=== PATIENT | male | born 1970 | race Caucasian/White ===

== ENCOUNTER 2017-01-29 23:24 | Observation (INO) ==
[2017-01-30] MEDS ORDERED: HYDROmorphone 2 MG/1 ML VIAL IV STA (00:46)
[2017-01-30] MEDS ORDERED: METOPROLOL TARTRATE 25 MG TABLET PO STA (00:46)
[2017-01-30] MEDS ORDERED: ONDANSETRON 4 MG/2 ML VIAL IV STA (00:46)
[2017-01-30] MEDS ORDERED: NITROGLYCERIN 2% OINT 1 INCH/GM PACK TOP STA (00:46)
[2017-01-30] MEDS ORDERED: ALUM/MAG/SIMETH/LIDO VISC 1:1 30 ML BOTTLE PO STA (00:46)
[2017-01-30] MEDS ORDERED: ASPIRIN EC 325 MG TABLET PO STA (00:49)
[2017-01-30] MEDS ORDERED: ALUM/MAG/SIMETH/LIDO VISC 1:1 30 ML BOTTLE PO ONE (00:54)
[2017-01-30] MEDS ORDERED: METOPROLOL TARTRATE 25 MG TABLET ONE (00:54)
[2017-01-30] MEDS ORDERED: ASPIRIN EC 325 MG TABLET PO ONE (00:54)
[2017-01-30] MEDS ORDERED: HYDROmorphone 2 MG/1 ML VIAL ONE (00:54)
[2017-01-30] MEDS ORDERED: NITROGLYCERIN 2% OINT 1 INCH/GM PACK TOP ONE (00:54)
[2017-01-30] MEDS ORDERED: ONDANSETRON 4 MG/2 ML VIAL ONE (00:54)
[2017-01-30 00:57] LABS: Alanine Aminotransferase 29 U/L (16-61); Albumin 3.5 G/DL (3.4-5.0); Alkaline Phosphatase 103 U/L (45-117); Aspartate Amino Transferase 19 U/L (0-37); Bilirubin,Total < 0.39 MG/DL (0.2-1.0); Blood Urea Nitrogen 18 MG/DL (7-18); Calcium 8.8 MG/DL (8.5-10.1); Glucose 137 MG/DL (74-106); Osmolality,Calculated 286.1 MOS/KG (273-304); Potassium 3.8 MMOL/L (3.5-5.1); Sodium 142 MMOL/L (136-145); Total Protein 6.7 G/DL (6.4-8.3)
[2017-01-30 00:58] LABS: Basophils % 0.4 % (0.0-0.8); Eosinophils # 0.3 10*3/uL (0.0-0.87); Eosinophils % 2.8 % (0.00-10.9); Hematocrit 36.8 VOL% (42.0-52.0); Hemoglobin 13.2 GM/DL (14.0-18.0); Immature Granulocytes % 0.2 %; Immature Granulocytes Absolute 0.02 #; Lymphocytes # 2.3 10*3/uL (1.4-4.0); Lymphocytes % 24.5 % (21.2-54.2); Mean Corpuscular HGB Conc 35.9 GM/DL (32-36); Mean Corpuscular Hemoglobin 30 PG (27-34); Mean Corpuscular Volume 83.8 FL (87-102); Mean Platelet Volume 11.1 FL (9.6-12.0); Monocytes # 0.8 10*3/uL (0.11-0.8); Monocytes % 8.2 % (1.7-12.7); Neutrophils # 5.9 10*3/uL (1.4-7.4); Neutrophils % 63.9 % (38.7-73.9); Platelet Count 284 T/CUMM (130-400); Red Blood Count 4.39 MC/CUMM (3.8-5.5); Red Cell Distribution Width 11.9 % (9.3-17.3); White Blood Count 9.2 T/CUMM (4-12)
--- NOTE | 2017-01-30 01:02 | Emergency Department Note ---
Devon Smith Emily, am scribing for, and in the presence of, Johnny Alcala MD 01: 00. Cari Smith Charles R, MD, personally performed the services described in this documentation, ascribed by Rossy Osorio in my presence, and it is both accurate and complete . Arrival - Arrival Chief Complaint: Chest Pain Stated Complaint: chest and side pain ED Nursing Triage Note: C/C burning/sharp/constant, chest pain radiates into left side, worse when laying down, occasionally short of breath, nauseated. Pain started Monday night. Mode of Arrival: Ambulatory Limitations: No Limitations Source: Patient Time Seen by Provider: 01/30/17 00:37 - History of Present Illness HPI Narrative: Pt is a 46 y/o male who came to ED with c/o chest pain that radiates down left arm and neck that has been ongoing since Monday. Pt notes the pain is sharp and worse when laying day. He also has occasional SOB and nausea with pain. Pt denies hx of heart issues. Pt reports having acid reflux but states these sxs now are different and never felt prior to visit. Pt is a former smoker. Pt denies recent injury. Pt's PCP is Dr. Nadege Heredia. Onset (ago): day(s) Consistency: constant Severity: mild Severity scale (1-10): 3 Quality: aching Allergies/Adverse Reactions: Allergies Allergy/AdvReac Type Severity Reaction Status Date / Time morphine Allergy RASH Verified 01/29/17 23:34 prochlorperazine Allergy RASH Verified 01/29/17 23:34 [From Compazine] tolmetin [From Tolectin] Allergy Anxiety Verified 01/29/17 23:34 Home Medications: Home Medications Medication Instructions Recorded Confirmed Type Aspirin [Ecotrin] 81 mg PO DAILY 04/23/15 06/17/16 History Hydrocodone Bit/Homatrop Me-Br 5 ml PO Q4HR PRN 04/23/15 06/17/16 History [Hydrocodone/Homatropine Syrup] Levofloxacin Tab [Levaquin Tab] 750 mg PO DAILY 04/23/15 06/17/16 History Levalbuterol Neb [Xopenex Neb] 1.25 mg RESP TX RT Q8H #1 neb NS 04/24/15 Rx Levofloxacin Tab [Levaquin Tab] 500 mg PO Q24H #0 tablet 04/24/15 06/17/16 Rx methylPREDNISolone DOSEPAK [Medrol 8 mg PO 0800 #21 tablet 04/24/15 06/17/16 Rx Dosepak] Cyclobenzaprine [Flexeril] 10 mg PO TID #20 tablet 06/17/16 Rx Ketorolac Tab [Toradol Tab] 10 mg PO Q8H #14 tablet 06/17/16 Rx Review of System - Review of System 12 point system: reviewed and no additional remarkable complaints except as stated - Review of System Constitutional: Absent: chills, fever Respiratory: Present: respiratory distress (occasional SOB) Cardiovascular: Present: chest pain. Absent: dyspnea on exertion Gastrointestinal: Present: nausea. Absent: vomiting Musculoskeletal: Absent: back pain Skin: Absent: rash Neurological: Absent: headache Medical,Surgical,& Family Hx - Medical History Cardio: No history of: CHF, CAD, Hypertension Respiratory: History of: Pneumonia Gastrointestinal: History of: GERD, GI Problems (hiatal hernia) Musculoskeletal: History of: Back/Neck Problems - Surgical History Orthopedic Surgeries: Surgical HX of;: Spinal Surgery (cervical fusion, SPINAL FUSION) - Family History Family History: Denies;: Family Cancer, Family Diabetes, Family Stroke - Social History Smoking Status: Former smoker Frequency of Alcohol Use: None Type of Drug Use: None Exam Vital Signs: Vital Signs Temperature 98.3 F 01/29/17 23:29 Pulse Rate 97 H 01/29/17 23:29 Respiratory Rate 16 01/29/17 23:55 Blood Pressure 126/89 01/29/17 23:29 O2 Sat by Pulse Oximetry 99 01/29/17 23:29 - General General appearance: alert, in no apparent distress - Head Head exam: Present: atraumatic, normocephalic - Eye Eye exam: Present: PERRL, EOMI - ENT ENT exam: Present: mucous membranes moist. Absent: mucous membranes dry - Neck Neck exam: Present: full ROM. Absent: tenderness - Chest Chest inspection: Present: symmetric chest wall rise, tenderness (reproducible left chest wall) - Respiratory Respiratory exam: Present: rhonchi. Absent: accessory muscle use, respiratory distress - Cardiovascular Cardiovascular exam: Present: regular rate, normal rhythm, normal heart sounds - Abdominal Exam Abdominal exam: Present: soft. Absent: distention, tenderness - Extremities Exam Extremities exam: Present: full ROM. Absent: tenderness, pedal edema - Neurological Exam Neurological exam: Present: alert, oriented X3, CN II-XII intact. Absent: motor sensory deficit - Psychiatric Psychiatric exam: Present: normal affect, normal mood - Skin Skin exam: Present: warm, dry Course - Consultations Consultation #1: Dr. Burnham will admit for Dr. Jeovanny Heredia Time: 01:12 Results - Labs CBC & BMP: 01/30/17 00:00 01/30/17 00:00 Lab Results: I have reviewed the patients labs Labs: Laboratory Tests 01/30/17 01/30/17 00:00 00:00 Hgb 13.2 L Hct 36.8 L MCV 83.8 L Glucose 137 H Albumin/Globulin Ratio 1.0 L Disposition Clinical Impression: Chest pain Case discussed with: patient, patient's family Disposition: Still a Patient Condition: Stable Time of Disposition: 01:12
[2017-01-30 01:03] LABS: PT Patient Result 10.4 SECS; Partial Thromboplastin Time 29.1 SECS (0-40)
[2017-01-30 01:05] LABS: Magnesium 1.9 MG/DL (1.8-2.4)
[2017-01-30] MEDS ORDERED: ONDANSETRON 4 MG/2 ML VIAL IV PRN (02:32)
[2017-01-30] MEDS ORDERED: LACTULOSE 20 GM/30 ML UDCUP PO PRN (02:32)
[2017-01-30] MEDS ORDERED: SODIUM CHLORIDE 0.9% 1,000 ML IV SCH (02:32)
[2017-01-30] MEDS ORDERED: ACETAMINOPHEN 325 MG TABLET PO PRN (02:32)
[2017-01-30] MEDS ORDERED: HYDROmorphone 2 MG/1 ML VIAL IV PRN (02:32)
[2017-01-30] MEDS: ENOXAPARIN 100 MG/ML SYRINGE SUBCUT SCH ×2 (02:56→08:28)
[2017-01-30 03:39] LABS: Barbiturates Screen,Urine Negative (Negative); Benzodiazepines Screen,Urine Negative (Negative); Cannabinoid Screen,Urine Negative (Negative); Opiate Screen,Urine Positive (Negative); Phencyclidine Screen,Urine Negative (Negative)
[2017-01-30 03:40] LABS: Apearance,Urine CLEAR (Clear); Bilirubin,Urine Negative (Negative); Blood, Urine Negative (Negative); Glucose,Urine (UA) Negative (Negative); Ketones,Urine Negative (Negative); Mucus,Urine Few /LPF (Occasional); Nitrite,Urine Negative (Negative); Protein,Urine Negative; Squamous Epithelial Cell,Urine Occasional /HPF (0-10); Urine Color Yellow (Yellow); Urine Specific Gravity 1.028 (1.001-1.035); Urine Urobilinogen < 2.0 EU/DL (0.2-1.0)
[2017-01-30 05:08] LABS: Basophils % 0.5 % (0.0-0.8); Eosinophils # 0.2 10*3/uL (0.0-0.87); Eosinophils % 2.9 % (0.00-10.9); Hematocrit 35.9 VOL% (42.0-52.0); Hemoglobin 12.3 GM/DL (14.0-18.0); Immature Granulocytes % 0.2 %; Immature Granulocytes Absolute 0.02 #; Lymphocytes # 2.5 10*3/uL (1.4-4.0); Lymphocytes % 29.5 % (21.2-54.2); Mean Corpuscular HGB Conc 34.3 GM/DL (32-36); Mean Corpuscular Hemoglobin 29 PG (27-34); Mean Corpuscular Volume 83.7 FL (87-102); Mean Platelet Volume 11.3 FL (9.6-12.0); Monocytes # 0.7 10*3/uL (0.11-0.8); Monocytes % 8.1 % (1.7-12.7); Neutrophils # 4.9 10*3/uL (1.4-7.4); Neutrophils % 58.8 % (38.7-73.9); Platelet Count 287 T/CUMM (130-400); Red Blood Count 4.29 MC/CUMM (3.8-5.5); Red Cell Distribution Width 12.2 % (9.3-17.3); White Blood Count 8.4 T/CUMM (4-12)
[2017-01-30 05:57] LABS: Albumin 3.3 G/DL (3.4-5.0); Bilirubin,Total 0.7 MG/DL (0.2-1.0); Calcium 8.9 MG/DL (8.5-10.1); Magnesium 2.3 MG/DL (1.8-2.4); Osmolality,Calculated 282.3 MOS/KG (273-304); Potassium 4.2 MMOL/L (3.5-5.1); Risk Ratio 5.71; Total Protein 6.3 G/DL (6.4-8.3); VLDL CHOLESTEROL 85.2 MG/DL
[2017-01-30] MEDS ORDERED: NITROGLYCERIN 2% OINT 1 INCH/GM PACK TOP SCH (06:00)
--- NOTE | 2017-01-30 06:31 | EKG Report ---
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
--- NOTE | 2017-01-30 06:34 | EKG Report ---
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
--- NOTE | 2017-01-30 07:11 | XRay Report ---
XR chest 1V portable Indication: Chest pain Comparison: Chest x-ray dated May 04, 2015 Technique: Single frontal view of the chest. Findings: The cardiomediastinal silhouette is stable in configuration. There is mild hazy opacification within the right lower/lateral lung which may be projectional or may reflect early consolidative process such as pneumonia. Visualized osseous and surrounding soft tissue structures appear grossly unchanged. IMPRESSION: As above. PROCEDURE INTERPRETED AT [facility] OF RAD[facility]OLOG[facility] Final Report Signed by: Dr Darío Chester
--- NOTE | 2017-01-30 07:25 | Family Practice History&Phys ---
Assessment and Plan (1) Atypical chest pain Status: Acute Assessment and plan: 01/30/2017: Cardiology will be consulted. We will start him on PPI. Current Visit: Yes History of Present Illness Chief complaint: Chest pain chest pain History of present illness: Mr. Dimas is a 46 year old male Patient's 46-year-old white male presents emergency room day of admission with substernal chest pain. Patient points to his epigastrium states it hurts into his left lateral chest as well. He states the pain is sharp and associated with some nausea and shortness of breath. He denies any diaphoresis and has not vomited. He does have history of cervical radiculopathy which is caused him similar pain in the past but this pain seems to be a bit lower. He denies any radiation to his neck shoulders or arms. Patient continues to smoke. He has been evaluated in the past for chest pain with no evidence of coronary artery disease. Home Medications Medication Instructions Recorded Confirmed Type Aspirin [Ecotrin] 81 mg PO DAILY 04/23/15 01/30/17 History Allergies Allergy/AdvReac Type Severity Reaction Status Date / Time morphine Allergy RASH Verified 01/29/17 23:34 prochlorperazine Allergy RASH Verified 01/29/17 23:34 [From Compazine] tolmetin [From Tolectin] Allergy Anxiety Verified 01/29/17 23:34 - Constitutional Constitutional: Absent: chills, fatigue, fever(s), weakness, weight gain - EENT Eyes: Absent: blurry vision, loss of vision Ears: Absent: decreased hearing, ear pain Nose, mouth and throat: Present: neck pain (This is chronic). Absent: nasal congestion, sinus pressure, sore throat - Cardiovascular Cardiovascular: Present: chest pain at rest. Absent: dyspnea, dyspnea on exertion, orthopnea, palpitations, PND - Respiratory Respiratory: Absent: cough, dyspnea, dyspnea on exertion, wheezing - Gastrointestinal Gastrointestinal: Present: abdominal pain. Absent: diarrhea, hematemesis, hematochezia, nausea, vomiting - Genitourinary Genitourinary: Absent: dysuria, hematuria, urinary frequency - Musculoskeletal Musculoskeletal: Absent: arthralgias, back pain - Neurological Neurological: Absent: confusion, focal weakness, numbness, paresthesias - Psychiatric Psychiatric: Absent: anxiety, depression - Endocrine Endocrine: Absent: fatigue, polydipsia, polyphagia - Hematologic/Lymphatic Hematologic/Lymphatic: Absent: easy bleeding, easy bruising Medical,Surgical,& Family Hx - Medical History Cardio: No history of: CHF, CAD, Hypertension Respiratory: History of: Pneumonia Gastrointestinal: History of: GERD, GI Problems (hiatal hernia) Musculoskeletal: History of: Back/Neck Problems - Surgical History Orthopedic Surgeries: Surgical HX of;: Spinal Surgery (cervical fusion, SPINAL FUSION) - Family History Family History: Denies;: Family Cancer, Family Diabetes, Family Stroke - Social History Smoking Status: Former smoker Frequency of Alcohol Use: None Type of Drug Use: None Exam - Constitutional Vitals: Period Temp Pulse Resp BP Sys/[place] Pulse Ox Last 24 Hr 97.9 F-98.3 F 65-97 16-20 115-126/54-89 94-99 Exam: General: Objective patient is a well-developed white male in no acute distress. Patient able give an excellent history. HEENT: Pupils equal and reactive to light. Patent nares and airway Neck: No meningismus, adenopathy, thyromegaly. There are no auscultated carotid bruits. Cardiovascular: Regular rhythm. No murmurs or gallops Chest: Clear to auscultation without rales rhonchi wheezes. There is no chest wall tenderness Abdomen: Patient is noted to have normal bowel sounds. Patient had some mild epigastric tenderness directly but no rebound or guarding tenderness. Neuro: Cranial nerves intact and DTRs and strength symmetric in all extremities. Dermatologic: No evidence of abnormal lesions or masses. Musculoskeletal: There is no joint swelling or tenderness or deformity. Extremities: There is no calf swelling or tenderness. Results - Labs CBC & BMP: 01/30/17 03:58 01/30/17 03:58 Lab Results: I have reviewed the past 24 hour labs - EKG EKG results: sinus rhythm (78 bpm) - Impressions Normal EKG - Diagnostic Findings Procedure: Chest x-ray: report reviewed by me (No acute abnormality seen)
--- NOTE | 2017-01-30 07:49 | EKG Report ---
Stationary ECG Study 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
--- NOTE | 2017-01-30 07:54 | XRay Report ---
XR chest 2V Indication: SOB Comparison: Chest x-ray dated January 30, 2017 Technique: Frontal and lateral views of the chest. Findings: The cardiomediastinal silhouette is stable in configuration. No focal consolidation, pleural effusion, or pneumothorax. Visualized osseous and surrounding soft tissue structures appear grossly unchanged. IMPRESSION: No acute cardiopulmonary process demonstrated. PROCEDURE INTERPRETED AT [facility] DEPARTMENT OF RADIOLOGY Final Report Signed by: Dr Darío Chester
[2017-01-30] MEDS ORDERED: PANTOPRAZOLE 40 MG VIAL IV SCH (09:00)
[2017-01-30] MEDS ORDERED: ASPIRIN EC 325 MG TABLET PO SCH (09:00)
[2017-01-30] MEDS ORDERED: ASPIRIN EC 81 MG TABLET PO SCH (09:00)
[2017-01-30] MEDS ORDERED: PANTOPRAZOLE 40 MG TABLET PO SCH (09:00)
[2017-01-30] MEDS ORDERED: DOCUSATE SODIUM 100 MG CAPSULE PO SCH (09:00)
--- NOTE | 2017-01-30 11:00 | Cardiology Consult Note ---
Addendum entered and electronically signed by Zarina Jacques NP 01/30/17 13:11 : Recommend that patient be discharged home with Aleve, Tylenol, tramadol and gabapentin for treatment of chest wall pain. Patient has been given prescriptions for these medications per cardiology. Patient was given a written prescription for tramadol per Dr. Sumeet Colmenares. Original Note: <Zarina Jacques - Last Filed: 01/30/17 11:55> Assessment and Plan - Time spent with patient Time spent with patient: Greater than 30 minutes (1) Atypical chest pain Status: Acute Assessment and plan: See plan of care listed below. Current Visit: Yes (2) Hypertriglyceridemia Status: Acute Assessment and plan: See plan of care listed below. Current Visit: Yes (3) Former smoker Status: Chronic Assessment and plan: See plan of care listed below. Current Visit: Yes (4) Cervical radiculopathy Status: Chronic Assessment and plan: See plan of care listed below. Current Visit: Yes History of Present Illness - Data of Consult Patient: new to practice Consult date: 01/30/17 Requesting Physician: Jeovanny Heredia - Consult Narrative Reason for consult: Atypical chest pain History of present illness: [employer]: New to cardiology Mr. Dimas is a 46 year old male patient without known history of coronary artery disease, not routinely followed by cardiology. Patient presented to [place] emergency department with complaints of chest discomfort. Patient has cardiac risk factors significant for former smoker (reports that he quit smoking approximately 2 years ago, smoked 1 pack per day). Patient denies significant family history of coronary artery disease. Reports a medical history of degenerative cervical disc disease, requiring nerve blocks occasionally. Only takes baby aspirin daily at home. Patient has never undergone cardiac workup. Patient presented to [facility] early this morning with chest pain. He reports that this began Monday afternoon while he was driving. This has been constant since Monday, waxing and waning in intensity. He describes this pain as a sharp/burning pain that begins in his epigastric area and radiates over to his left chest. Does not radiate to neck or left arm. Reports that his pain is worsened when he lies flat on his back. It gets better with walking. Reports that it is associated with mild shortness of breath and nausea. Denies fever, chills, cough, abdominal pain, vomiting, diaphoresis, palpitations/heart racing, lower extremity edema, orthopnea and PND. Patient does have a history of reflux. Patient tells me that his chest pain does not seem to have any association with mealtimes. Patient's chest pain continued throughout the weekend and early this morning patient decided that he needed further evaluation in the emergency department. Patient reports that nitroglycerin had no effect on his chest pain. Patient has been admitted under Dr. Jeovanny Archibald's service and housed on the telemetry unit. Cardiology has been consulted to further evaluate patient's chest discomfort. Patient was seen and examined on the telemetry unit. Continues to complain of mild chest discomfort. Troponin has been negative 3. EKG is unremarkable. Patient has no known cardiac history. Upon exam, patient's chest pain is reproducible to light palpation. Triglycerides of 426 noted. Will order hemoglobin A1c. Will discuss with Dr. Colmenares. Further plan and addendum to follow. Assessment/plan: 1. ATYPICAL CHEST PAIN - Patient's chest pain is atypical in nature. Patient' s chest pain has been constant, waxing and waning in intensity since Monday evening and cardiac biomarkers are negative 3. This makes it very unlikely to be cardiac in nature. EKG is unremarkable. Upon exam, patient's chest pain is reproducible to light palpation. It appears that patient's chest pain may be multifactorial as he has reflux symptoms as well as chest wall pain. At this point, I will assure the patient has PPI on board and treat his chest wall pain. I think it is reasonable to allow patient to be discharged home and schedule him an outpatient stress test in the cardiology clinic this week. He will then follow up with Dr. Colmenares one week following his stress test. 2. HYPERTRIGLYCERIDEMIA - Triglycerides 426. Hemoglobin A1c has been added to patient's lab draw. Fish oil has been added to patient's medication regimen. 3. CERVICAL RADICULOPATHY - Clinically stable. May be contributing to patient 's atypical chest pain. 4. FORMER SMOKER - Patient reports that he quit smoking approximately 2 years ago. Further plan and addendum to follow per Dr. Colmenares. CC: Jeovanny Heredia MD - Home Medications and Allergies Home Medications: Home Medications Medication Instructions Recorded Confirmed Type Aspirin [Ecotrin] 81 mg PO DAILY 04/23/15 01/30/17 History Acetaminophen Tab [Tylenol Tab] 325 mg PO BID #14 tablet 01/30/17 Rx Aspirin EC Tab 325 mg PO DAILY tablet 01/30/17 Rx Gabapentin 100 mg PO TID #90 capsule 01/30/17 Rx HYDROcodone/ACETAMIN 5-325 [[place] 1 tablet PO Q4H PRN #30 tablet 01/30/17 Rx 5-325] [place] 3 Acid Ethyl Esters [Lovaza] 1 gm PO BID capsule 01/30/17 Rx Pantoprazole Tab [Protonix Tab] 40 mg PO BID #60 tablet 01/30/17 Rx Allergies/Adverse Reactions: Allergies Allergy/AdvReac Type Severity Reaction Status Date / Time prochlorperazine Allergy RASH Verified 01/29/17 23:34 [From Compazine] tolmetin [From Tolectin] Allergy Anxiety Verified 01/29/17 23:34 - Constitutional Constitutional: Absent: chills, fatigue, fever(s), malaise, weakness, weight gain, weight loss - Cardiovascular Cardiovascular: Present: as per HPI, chest pain at rest, dyspnea. Absent: chest pain with activity, claudication, diaphoresis, dyspnea on exertion, edema , radiating jaw, neck or arm pain, lightheadedness, orthopnea, palpitations, PND - Respiratory Respiratory: Present: dyspnea. Absent: cough, dyspnea on exertion, wheezing, snoring, pain on inspiration, change in phlegm color - Gastrointestinal Gastrointestinal: Present: heartburn, nausea. Absent: abdominal pain, coffee ground emesis, diarrhea, hematochezia, melena, vomiting - Neurological Neurological: Absent: abnormal gait, abnormal speech, behavioral changes, dizziness, syncope - Hematologic/Lymphatic Hematologic/Lymphatic: Absent: easy bleeding, easy bruising, lymphadenopathy Medical,Surgical,& Family Hx - Medical History Cardio: No history of: CHF, CAD, Hypertension Gastrointestinal: History of: GERD, GI Problems (hiatal hernia) Musculoskeletal: History of: Back/Neck Problems - Surgical History Orthopedic Surgeries: Surgical HX of;: Spinal Surgery (cervical fusion, SPINAL FUSION) - Family History Family History: Denies;: Family Cancer, Family Diabetes, Family Heart Disease, Family Stroke - Social History Smoking Status: Former smoker Frequency of Alcohol Use: None Type of Drug Use: None Physical Examination Vital Signs Temp Pulse Resp BP Pulse Ox 98.3 F 97 H 18 126/89 99 01/29/17 23:29 01/29/17 23:29 01/29/17 23:29 01/29/17 23:29 01/29/17 23:29 Other: General: Appears well with no apparent distress. Pleasant and cooperative. Appears comfortable. HEENT: PERRL, normocephalic, atraumatic. Mucous membranes moist. No jaundice noted. Conjunctiva moist and clear, sclerae anicteric Neck: No JVD/HJR, no thyromegaly or lymphadenopathy noted. No carotid bruit appreciated Cardiac: Regular rate and rhythm. No murmur rub or gallop. Chest wall: Tender to light palpation. Lungs: Clear to auscultation without accessory muscle use to assist the respiratory pattern. Not requiring oxygen. Abdomen: Soft, bowel sounds normoactive. Nontender and nondistended. No abdominal bruit or thrill noted. No masses noted. Extremities: No clubbing, cyanosis noted. No edema noted. Upper extremity pulses 2+. Lower extremity pulses 2+. Capillary refill less than 3 seconds. Skin: No unusual lesions or rashes. No skin breakdown appreciated. Neuro: Awake, alert and oriented 3. Moves all extremities well without hemiparesis or paralysis. No essential tremor is appreciated. Result/EKG - Labs CBC & BMP: 01/30/17 03:58 01/30/17 03:58 Lab Results: I have reviewed the past 24 hour labs Labs: Laboratory Results - last 24 hr 01/30/17 01/30/17 01/30/17 00:00 00:00 00:00 WBC RBC Hgb Hct MCV MCH MCHC RDW Plt Count MPV Neut % (Auto) Lymph % (Auto) [place] % (Auto) Eos % (Auto) Baso % (Auto) Neut # (Auto) Lymph # (Auto) [place] # (Auto) Eos # (Auto) Baso # (Auto) Immature Gran % Nucleated RBC % Immature Gran # Nucleated RBCs # INR 1.0 PT Patient/Control Mix 10.4 Circ Anticoag PTT 29.1 Sodium Potassium Chloride Carbon Dioxide Anion Gap BUN Creatinine GFR Calculation BUN/Creatinine Ratio Glucose Calculated Osmolality Calcium Magnesium 1.9 Total Bilirubin AST ALT Alkaline Phosphatase Troponin I B-Natriuretic Peptide 7 Total Protein Albumin Globulin Albumin/Globulin Ratio Triglycerides Cholesterol LDL Cholesterol VLDL Cholesterol HDL Cholesterol Heart Disease Risk Ratio Lipase 110.0 Urine Color Urine Appearance Urine pH Ur Specific [place] Urine Protein Urine Glucose (UA) Urine Ketones Urine Blood Urine Nitrate Urine Bilirubin Urine Urobilinogen Urine Leukocytes Ur Squamous Epith Cells Urine Mucus Ur Culture Indicated? Urine Opiates Screen Ur Barbiturates Screen Ur Phencyclidine Scrn U Amphetamine/Methamph U Benzodiazepines Scrn U Cocaine Metab Screen U Cannabinoids Screen 01/30/17 01/30/17 01/30/17 00:00 00:00 00:00 WBC 9.2 RBC 4.39 Hgb 13.2 L Hct 36.8 L MCV 83.8 L MCH 30 MCHC 35.9 RDW 11.9 Plt Count 284 MPV 11.1 Neut % (Auto) 63.9 Lymph % (Auto) 24.5 [place] % (Auto) 8.2 Eos % (Auto) 2.8 Baso % (Auto) 0.4 Neut # (Auto) 5.9 Lymph # (Auto) 2.3 [place] # (Auto) 0.8 Eos # (Auto) 0.3 Baso # (Auto) 0.0 Immature Gran % 0.2 Nucleated RBC % 0.0 Immature Gran # 0.02 Nucleated RBCs # 0.00 INR PT Patient/Control Mix Circ Anticoag PTT Sodium 142 Potassium 3.8 Chloride 107 Carbon Dioxide 26 Anion Gap 12.8 BUN 18 Creatinine 0.90 GFR Calculation 135 BUN/Creatinine Ratio 20.00 Glucose 137 H Calculated Osmolality 286.1 Calcium 8.8 Magnesium Total Bilirubin < 0.39 AST 19 ALT 29 Alkaline Phosphatase 103 Troponin I < 0.015 B-Natriuretic Peptide Total Protein 6.7 Albumin 3.5 Globulin 3.2 Albumin/Globulin Ratio 1.0 L Triglycerides Cholesterol LDL Cholesterol VLDL Cholesterol HDL Cholesterol Heart Disease Risk Ratio Lipase Urine Color Urine Appearance Urine pH Ur Specific [place] Urine Protein Urine Glucose (UA) Urine Ketones Urine Blood Urine Nitrate Urine Bilirubin Urine Urobilinogen Urine Leukocytes Ur Squamous Epith Cells Urine Mucus Ur Culture Indicated? Urine Opiates Screen Ur Barbiturates Screen Ur Phencyclidine Scrn U Amphetamine/Methamph U Benzodiazepines Scrn U Cocaine Metab Screen U Cannabinoids Screen 01/30/17 01/30/17 01/30/17 03:00 03:00 03:58 WBC RBC Hgb Hct MCV MCH MCHC RDW Plt Count MPV Neut % (Auto) Lymph % (Auto) [place] % (Auto) Eos % (Auto) Baso % (Auto) Neut # (Auto) Lymph # (Auto) [place] # (Auto) Eos # (Auto) Baso # (Auto) Immature Gran % Nucleated RBC % Immature Gran # Nucleated RBCs # INR PT Patient/Control Mix Circ Anticoag PTT Sodium Potassium Chloride Carbon Dioxide Anion Gap BUN Creatinine GFR Calculation BUN/Creatinine Ratio Glucose Calculated Osmolality Calcium Magnesium Total Bilirubin AST ALT Alkaline Phosphatase Troponin I < 0.015 B-Natriuretic Peptide Total Protein Albumin Globulin Albumin/Globulin Ratio Triglycerides Cholesterol LDL Cholesterol VLDL Cholesterol HDL Cholesterol Heart Disease Risk Ratio Lipase Urine Color Yellow Urine Appearance Clear Urine pH 6.0 Ur Specific [place] 1.028 Urine Protein Negative Urine Glucose (UA) Negative Urine Ketones Negative Urine Blood Negative Urine Nitrate Negative Urine Bilirubin Negative Urine Urobilinogen < 2.0 H Urine Leukocytes Negative Ur Squamous Epith Cells Occasional Urine Mucus Few Ur Culture Indicated? Not indicated Urine Opiates Screen Positive H Ur Barbiturates Screen Negative Ur Phencyclidine Scrn Negative U Amphetamine/Methamph Negative U Benzodiazepines Scrn Negative U Cocaine Metab Screen Negative U Cannabinoids Screen Negative 01/30/17 01/30/17 01/30/17 03:58 03:58 03:58 WBC 8.4 RBC 4.29 Hgb 12.3 L Hct 35.9 L MCV 83.7 L MCH 29 MCHC 34.3 RDW 12.2 Plt Count 287 MPV 11.3 Neut % (Auto) 58.8 Lymph % (Auto) 29.5 [place] % (Auto) 8.1 Eos % (Auto) 2.9 Baso % (Auto) 0.5 Neut # (Auto) 4.9 Lymph # (Auto) 2.5 [place] # (Auto) 0.7 Eos # (Auto) 0.2 Baso # (Auto) 0.0 Immature Gran % 0.2 Nucleated RBC % 0.0 Immature Gran # 0.02 Nucleated RBCs # 0.00 INR PT Patient/Control Mix Circ Anticoag PTT Sodium 141 Potassium 4.2 Chloride 104 Carbon Dioxide 27 Anion Gap 14.2 BUN 19 H Creatinine 0.80 GFR Calculation 143 BUN/Creatinine Ratio 23.00 H Glucose 101 Calculated Osmolality 282.3 Calcium 8.9 Magnesium 2.3 Total Bilirubin 0.70 AST 15 ALT 26 Alkaline Phosphatase 94 Troponin I B-Natriuretic Peptide 9 Total Protein 6.3 L Albumin 3.3 L Globulin 3.0 Albumin/Globulin Ratio 1.1 Triglycerides 426 H Cholesterol 194 LDL Cholesterol 88.0 VLDL Cholesterol 85.2 HDL Cholesterol 34 L Heart Disease Risk Ratio 5.71 Lipase Urine Color Urine Appearance Urine pH Ur Specific [place] Urine Protein Urine Glucose (UA) Urine Ketones Urine Blood Urine Nitrate Urine Bilirubin Urine Urobilinogen Urine Leukocytes Ur Squamous Epith Cells Urine Mucus Ur Culture Indicated? Urine Opiates Screen Ur Barbiturates Screen Ur Phencyclidine Scrn U Amphetamine/Methamph U Benzodiazepines Scrn U Cocaine Metab Screen U Cannabinoids Screen 01/30/17 06:35 WBC RBC Hgb Hct MCV MCH MCHC RDW Plt Count MPV Neut % (Auto) Lymph % (Auto) [place] % (Auto) Eos % (Auto) Baso % (Auto) Neut # (Auto) Lymph # (Auto) [place] # (Auto) Eos # (Auto) Baso # (Auto) Immature Gran % Nucleated RBC % Immature Gran # Nucleated RBCs # INR PT Patient/Control Mix Circ Anticoag PTT Sodium Potassium Chloride Carbon Dioxide Anion Gap BUN Creatinine GFR Calculation BUN/Creatinine Ratio Glucose Calculated Osmolality Calcium Magnesium Total Bilirubin AST ALT Alkaline Phosphatase Troponin I < 0.015 B-Natriuretic Peptide Total Protein Albumin Globulin Albumin/Globulin Ratio Triglycerides Cholesterol LDL Cholesterol VLDL Cholesterol HDL Cholesterol Heart Disease Risk Ratio Lipase Urine Color Urine Appearance Urine pH Ur Specific [place] Urine Protein Urine Glucose (UA) Urine Ketones Urine Blood Urine Nitrate Urine Bilirubin Urine Urobilinogen Urine Leukocytes Ur Squamous Epith Cells Urine Mucus Ur Culture Indicated? Urine Opiates Screen Ur Barbiturates Screen Ur Phencyclidine Scrn U Amphetamine/Methamph U Benzodiazepines Scrn U Cocaine Metab Screen U Cannabinoids Screen - EKG EKG results: interpreted by me, sinus rhythm EKG shows: bradycardia Specialty Discharge - Follow Up or Referrals Follow up with: Sumeet Colmenares MD [Physician] - (Please schedule cardiac stress test in the [facility] this week and follow-up appointment with Dr. Colmenares 1 week after stress test.) <Sumeet Colmenares - Last Filed: 01/30/17 13:36> Assessment and Plan (1) Atypical chest pain Status: Acute Current Visit: Yes (2) Chest wall pain Status: Acute Current Visit: Yes (3) Hypertriglyceridemia Status: Acute Current Visit: Yes (4) Cervical radiculopathy Status: Chronic Current Visit: Yes (5) Former smoker Status: Chronic Current Visit: Yes (6) Acute dyspnea Status: Acute Current Visit: No (7) Upper respiratory infection Status: Acute Current Visit: No History of Present Illness - Consult Narrative History of present illness: Mr. Dimas is a 46 year old male CC: Jeovanny Heredia MD Physical Examination Vital Signs Temp Pulse Resp BP Pulse Ox 98.3 F 97 H 18 126/89 99 01/29/17 23:29 01/29/17 23:29 01/29/17 23:29 01/29/17 23:29 01/29/17 23:29 Result/EKG - Labs CBC & BMP: 01/30/17 03:58 01/30/17 03:58 Labs: Laboratory Results - last 24 hr 01/30/17 01/30/17 01/30/17 00:00 00:00 00:00 WBC RBC Hgb Hct MCV MCH MCHC RDW Plt Count MPV Neut % (Auto) Lymph % (Auto) [place] % (Auto) Eos % (Auto) Baso % (Auto) Neut # (Auto) Lymph # (Auto) [place] # (Auto) Eos # (Auto) Baso # (Auto) Immature Gran % Nucleated RBC % Immature Gran # Nucleated RBCs # INR 1.0 PT Patient/Control Mix 10.4 Circ Anticoag PTT 29.1 Sodium Potassium Chloride Carbon Dioxide Anion Gap BUN Creatinine GFR Calculation BUN/Creatinine Ratio Glucose Hemoglobin A1c Calculated Osmolality Calcium Magnesium 1.9 Total Bilirubin AST ALT Alkaline Phosphatase Troponin I B-Natriuretic Peptide 7 Total Protein Albumin Globulin Albumin/Globulin Ratio Triglycerides Cholesterol LDL Cholesterol VLDL Cholesterol HDL Cholesterol Heart Disease Risk Ratio Lipase 110.0 Urine Color Urine Appearance Urine pH Ur Specific [place] Urine Protein Urine Glucose (UA) Urine Ketones Urine Blood Urine Nitrate Urine Bilirubin Urine Urobilinogen Urine Leukocytes Ur Squamous Epith Cells Urine Mucus Ur Culture Indicated? Urine Opiates Screen Ur Barbiturates Screen Ur Phencyclidine Scrn U Amphetamine/Methamph U Benzodiazepines Scrn U Cocaine Metab Screen U Cannabinoids Screen 01/30/17 01/30/17 01/30/17 00:00 00:00 00:00 WBC 9.2 RBC 4.39 Hgb 13.2 L Hct 36.8 L MCV 83.8 L MCH 30 MCHC 35.9 RDW 11.9 Plt Count 284 MPV 11.1 Neut % (Auto) 63.9 Lymph % (Auto) 24.5 [place] % (Auto) 8.2 Eos % (Auto) 2.8 Baso % (Auto) 0.4 Neut # (Auto) 5.9 Lymph # (Auto) 2.3 [place] # (Auto) 0.8 Eos # (Auto) 0.3 Baso # (Auto) 0.0 Immature Gran % 0.2 Nucleated RBC % 0.0 Immature Gran # 0.02 Nucleated RBCs # 0.00 INR PT Patient/Control Mix Circ Anticoag PTT Sodium 142 Potassium 3.8 Chloride 107 Carbon Dioxide 26 Anion Gap 12.8 BUN 18 Creatinine 0.90 GFR Calculation 135 BUN/Creatinine Ratio 20.00 Glucose 137 H Hemoglobin A1c Calculated Osmolality 286.1 Calcium 8.8 Magnesium Total Bilirubin < 0.39 AST 19 ALT 29 Alkaline Phosphatase 103 Troponin I < 0.015 B-Natriuretic Peptide Total Protein 6.7 Albumin 3.5 Globulin 3.2 Albumin/Globulin Ratio 1.0 L Triglycerides Cholesterol LDL Cholesterol VLDL Cholesterol HDL Cholesterol Heart Disease Risk Ratio Lipase Urine Color Urine Appearance Urine pH Ur Specific [place] Urine Protein Urine Glucose (UA) Urine Ketones Urine Blood Urine Nitrate Urine Bilirubin Urine Urobilinogen Urine Leukocytes Ur Squamous Epith Cells Urine Mucus Ur Culture Indicated? Urine Opiates Screen Ur Barbiturates Screen Ur Phencyclidine Scrn U Amphetamine/Methamph U Benzodiazepines Scrn U Cocaine Metab Screen U Cannabinoids Screen 01/30/17 01/30/17 01/30/17 03:00 03:00 03:54 WBC RBC Hgb Hct MCV MCH MCHC RDW Plt Count MPV Neut % (Auto) Lymph % (Auto) [place] % (Auto) Eos % (Auto) Baso % (Auto) Neut # (Auto) Lymph # (Auto) [place] # (Auto) Eos # (Auto) Baso # (Auto) Immature Gran % Nucleated RBC % Immature Gran # Nucleated RBCs # INR PT Patient/Control Mix Circ Anticoag PTT Sodium Potassium Chloride Carbon Dioxide Anion Gap BUN Creatinine GFR Calculation BUN/Creatinine Ratio Glucose Hemoglobin A1c 5.9 Calculated Osmolality Calcium Magnesium Total Bilirubin AST ALT Alkaline Phosphatase Troponin I B-Natriuretic Peptide Total Protein Albumin Globulin Albumin/Globulin Ratio Triglycerides Cholesterol LDL Cholesterol VLDL Cholesterol HDL Cholesterol Heart Disease Risk Ratio Lipase Urine Color Yellow Urine Appearance Clear Urine pH 6.0 Ur Specific [place] 1.028 Urine Protein Negative Urine Glucose (UA) Negative Urine Ketones Negative Urine Blood Negative Urine Nitrate Negative Urine Bilirubin Negative Urine Urobilinogen < 2.0 H Urine Leukocytes Negative Ur Squamous Epith Cells Occasional Urine Mucus Few Ur Culture Indicated? Not indicated Urine Opiates Screen Positive H Ur Barbiturates Screen Negative Ur Phencyclidine Scrn Negative U Amphetamine/Methamph Negative U Benzodiazepines Scrn Negative U Cocaine Metab Screen Negative U Cannabinoids Screen Negative 01/30/17 01/30/17 01/30/17 03:58 03:58 03:58 WBC 8.4 RBC 4.29 Hgb 12.3 L Hct 35.9 L MCV 83.7 L MCH 29 MCHC 34.3 RDW 12.2 Plt Count 287 MPV 11.3 Neut % (Auto) 58.8 Lymph % (Auto) 29.5 [place] % (Auto) 8.1 Eos % (Auto) 2.9 Baso % (Auto) 0.5 Neut # (Auto) 4.9 Lymph # (Auto) 2.5 [place] # (Auto) 0.7 Eos # (Auto) 0.2 Baso # (Auto) 0.0 Immature Gran % 0.2 Nucleated RBC % 0.0 Immature Gran # 0.02 Nucleated RBCs # 0.00 INR PT Patient/Control Mix Circ Anticoag PTT Sodium 141 Potassium 4.2 Chloride 104 Carbon Dioxide 27 Anion Gap 14.2 BUN 19 H Creatinine 0.80 GFR Calculation 143 BUN/Creatinine Ratio 23.00 H Glucose 101 Hemoglobin A1c Calculated Osmolality 282.3 Calcium 8.9 Magnesium 2.3 Total Bilirubin 0.70 AST 15 ALT 26 Alkaline Phosphatase 94 Troponin I < 0.015 B-Natriuretic Peptide Total Protein 6.3 L Albumin 3.3 L Globulin 3.0 Albumin/Globulin Ratio 1.1 Triglycerides 426 H Cholesterol 194 LDL Cholesterol 88.0 VLDL Cholesterol 85.2 HDL Cholesterol 34 L Heart Disease Risk Ratio 5.71 Lipase Urine Color Urine Appearance Urine pH Ur Specific [place] Urine Protein Urine Glucose (UA) Urine Ketones Urine Blood Urine Nitrate Urine Bilirubin Urine Urobilinogen Urine Leukocytes Ur Squamous Epith Cells Urine Mucus Ur Culture Indicated? Urine Opiates Screen Ur Barbiturates Screen Ur Phencyclidine Scrn U Amphetamine/Methamph U Benzodiazepines Scrn U Cocaine Metab Screen U Cannabinoids Screen 01/30/17 01/30/17 03:58 06:35 WBC RBC Hgb Hct MCV MCH MCHC RDW Plt Count MPV Neut % (Auto) Lymph % (Auto) [place] % (Auto) Eos % (Auto) Baso % (Auto) Neut # (Auto) Lymph # (Auto) [place] # (Auto) Eos # (Auto) Baso # (Auto) Immature Gran % Nucleated RBC % Immature Gran # Nucleated RBCs # INR PT Patient/Control Mix Circ Anticoag PTT Sodium Potassium Chloride Carbon Dioxide Anion Gap BUN Creatinine GFR Calculation BUN/Creatinine Ratio Glucose Hemoglobin A1c Calculated Osmolality Calcium Magnesium Total Bilirubin AST ALT Alkaline Phosphatase Troponin I < 0.015 B-Natriuretic Peptide 9 Total Protein Albumin Globulin Albumin/Globulin Ratio Triglycerides Cholesterol LDL Cholesterol VLDL Cholesterol HDL Cholesterol Heart Disease Risk Ratio Lipase Urine Color Urine Appearance Urine pH Ur Specific [place] Urine Protein Urine Glucose (UA) Urine Ketones Urine Blood Urine Nitrate Urine Bilirubin Urine Urobilinogen Urine Leukocytes Ur Squamous Epith Cells Urine Mucus Ur Culture Indicated? Urine Opiates Screen Ur Barbiturates Screen Ur Phencyclidine Scrn U Amphetamine/Methamph U Benzodiazepines Scrn U Cocaine Metab Screen U Cannabinoids Screen
[2017-01-30] MEDS ORDERED: OMEGA 3 ACID ETHYL ESTERS 1 GM CAPSULE PO SCH (11:30)
[2017-01-30 12:21] VITALS: BP 106/65
--- NOTE | 2017-01-30 13:29 | Discharge Summary ---
Hospital Course - Hospital Course Hospital Course: Patient is a 38-year-old white male presented emergency room with substernal chest pain. Patient's EKG and cardiac isoenzymes remain negative. Patient has a strong history of reflux and is felt this is the probable cause of his pain. Patient was seen by cardiology will have an outpatient treadmill study. Patient was comfortable being discharged. Diagnosis - Discharge Diagnosis (1) Atypical chest pain Status: Acute Specialty Discharge - Follow Up or Referrals Follow up with: Sumeet Colmenares MD [Physician] - (Please schedule cardiac stress test in the [facility] this week and follow-up appointment with Dr. Colmenares 1 week after stress test.) Discharge Plan - Discharge Data Disposition: Disch To Home/Self Care Condition at Discharge: Stable Discharge Diet: advance to your usual diet Activity: resume usual activities as tolerated Hygiene: no restrictions Weight Bearing at Discharge: full weight bearing Driving: no restrictions Contact your physician if you experience:: Shortness of breath - Discharge Medications [place] 100 mg PO TID #90 capsule Aspirin EC Tab 325 mg PO DAILY tablet HYDROcodone/ACETAMIN 5-325 [[place] 5-325] 1 tablet PO Q4H PRN #30 tablet PRN Reason: Pain Moderate (4-7) [place] 3 Acid Ethyl Esters [Lovaza] 1 gm PO BID capsule Pantoprazole Tab [Protonix Tab] 40 mg PO BID #60 tablet Acetaminophen Tab [Tylenol Tab] 325 mg PO BID #14 tablet Continue Aspirin [Ecotrin] 81 mg PO DAILY - Follow Up or Referral Follow Up: Sumeet Colmenares MD [Physician] - (Please schedule cardiac stress test in the [facility] this week and follow-up appointment with Dr. Colmenares 1 week after stress test.) - Forms/Instructions Exam - Constitutional Vitals: Period Temp Pulse Resp BP Sys/[place] Pulse Ox Last 24 Hr 97.4 F-98.3 F 55-97 16-20 100-126/54-89 94-99 Exam: General: Objective patient is a well-developed white male in no acute distress. Patient able give an excellent history. HEENT: Pupils equal and reactive to light. Patent nares and airway Neck: No meningismus, adenopathy, thyromegaly. There are no auscultated carotid bruits. Cardiovascular: Regular rhythm. No murmurs or gallops Chest: Clear to auscultation without rales rhonchi wheezes. There is no chest wall tenderness Abdomen: Patient is noted to have normal bowel sounds. Patient had some mild epigastric tenderness directly but no rebound or guarding tenderness. Neuro: Cranial nerves intact and DTRs and strength symmetric in all extremities. Dermatologic: No evidence of abnormal lesions or masses. Musculoskeletal: There is no joint swelling or tenderness or deformity. Extremities: There is no calf swelling or tenderness. Discharge Results Labs on day of discharge: Labs from last 24 hours 01/30/17 01/30/17 01/30/17 06:35 03:58 03:58 WBC RBC Hgb Hct MCV MCH MCHC RDW Plt Count MPV Neut % (Auto) Lymph % (Auto) Charles % (Auto) Eos % (Auto) Baso % (Auto) Neut # (Auto) Lymph # (Auto) Charles # (Auto) Eos # (Auto) Baso # (Auto) Immature Gran % Nucleated RBC % Immature Gran # Nucleated RBCs # INR PT Patient/Control Mix Circ Anticoag PTT Sodium 141 Potassium 4.2 Chloride 104 Carbon Dioxide 27 Anion Gap 14.2 BUN 19 H Creatinine 0.80 GFR Calculation 143 BUN/Creatinine Ratio 23.00 H Glucose 101 Hemoglobin A1c Calculated Osmolality 282.3 Calcium 8.9 Magnesium 2.3 Total Bilirubin 0.70 AST 15 ALT 26 Alkaline Phosphatase 94 Troponin I < 0.015 B-Natriuretic Peptide 9 Total Protein 6.3 L Albumin 3.3 L Globulin 3.0 Albumin/Globulin Ratio 1.1 Triglycerides 426 H Cholesterol 194 LDL Cholesterol 88.0 VLDL Cholesterol 85.2 HDL Cholesterol 34 L Heart Disease Risk Ratio 5.71 Lipase Urine Color Urine Appearance Urine pH Ur Specific [place] Urine Protein Urine Glucose (UA) Urine Ketones Urine Blood Urine Nitrate Urine Bilirubin Urine Urobilinogen Urine Leukocytes Ur Squamous Epith Cells Urine Mucus Ur Culture Indicated? Urine Opiates Screen Ur Barbiturates Screen Ur Phencyclidine Scrn U Amphetamine/Methamph U Benzodiazepines Scrn U Cocaine Metab Screen U Cannabinoids Screen 01/30/17 01/30/17 01/30/17 03:58 03:58 03:54 WBC 8.4 RBC 4.29 Hgb 12.3 L Hct 35.9 L MCV 83.7 L MCH 29 MCHC 34.3 RDW 12.2 Plt Count 287 MPV 11.3 Neut % (Auto) 58.8 Lymph % (Auto) 29.5 Charles % (Auto) 8.1 Eos % (Auto) 2.9 Baso % (Auto) 0.5 Neut # (Auto) 4.9 Lymph # (Auto) 2.5 Charles # (Auto) 0.7 Eos # (Auto) 0.2 Baso # (Auto) 0.0 Immature Gran % 0.2 Nucleated RBC % 0.0 Immature Gran # 0.02 Nucleated RBCs # 0.00 INR PT Patient/Control Mix Circ Anticoag PTT Sodium Potassium Chloride Carbon Dioxide Anion Gap BUN Creatinine GFR Calculation BUN/Creatinine Ratio Glucose Hemoglobin A1c 5.9 Calculated Osmolality Calcium Magnesium Total Bilirubin AST ALT Alkaline Phosphatase Troponin I < 0.015 B-Natriuretic Peptide Total Protein Albumin Globulin Albumin/Globulin Ratio Triglycerides Cholesterol LDL Cholesterol VLDL Cholesterol HDL Cholesterol Heart Disease Risk Ratio Lipase Urine Color Urine Appearance Urine pH Ur Specific [place] Urine Protein Urine Glucose (UA) Urine Ketones Urine Blood Urine Nitrate Urine Bilirubin Urine Urobilinogen Urine Leukocytes Ur Squamous Epith Cells Urine Mucus Ur Culture Indicated? Urine Opiates Screen Ur Barbiturates Screen Ur Phencyclidine Scrn U Amphetamine/Methamph U Benzodiazepines Scrn U Cocaine Metab Screen U Cannabinoids Screen 01/30/17 01/30/17 01/30/17 03:00 03:00 00:00 WBC RBC Hgb Hct MCV MCH MCHC RDW Plt Count MPV Neut % (Auto) Lymph % (Auto) Charles % (Auto) Eos % (Auto) Baso % (Auto) Neut # (Auto) Lymph # (Auto) Charles # (Auto) Eos # (Auto) Baso # (Auto) Immature Gran % Nucleated RBC % Immature Gran # Nucleated RBCs # INR PT Patient/Control Mix Circ Anticoag PTT Sodium 142 Potassium 3.8 Chloride 107 Carbon Dioxide 26 Anion Gap 12.8 BUN 18 Creatinine 0.90 GFR Calculation 135 BUN/Creatinine Ratio 20.00 Glucose 137 H Hemoglobin A1c Calculated Osmolality 286.1 Calcium 8.8 Magnesium Total Bilirubin < 0.39 AST 19 ALT 29 Alkaline Phosphatase 103 Troponin I B-Natriuretic Peptide Total Protein 6.7 Albumin 3.5 Globulin 3.2 Albumin/Globulin Ratio 1.0 L Triglycerides Cholesterol LDL Cholesterol VLDL Cholesterol HDL Cholesterol Heart Disease Risk Ratio Lipase Urine Color Yellow Urine Appearance Clear Urine pH 6.0 Ur Specific [place] 1.028 Urine Protein Negative Urine Glucose (UA) Negative Urine Ketones Negative Urine Blood Negative Urine Nitrate Negative Urine Bilirubin Negative Urine Urobilinogen < 2.0 H Urine Leukocytes Negative Ur Squamous Epith Cells Occasional Urine Mucus Few Ur Culture Indicated? Not indicated Urine Opiates Screen Positive H Ur Barbiturates Screen Negative Ur Phencyclidine Scrn Negative U Amphetamine/Methamph Negative U Benzodiazepines Scrn Negative U Cocaine Metab Screen Negative U Cannabinoids Screen Negative 01/30/17 01/30/17 01/30/17 00:00 00:00 00:00 WBC 9.2 RBC 4.39 Hgb 13.2 L Hct 36.8 L MCV 83.8 L MCH 30 MCHC 35.9 RDW 11.9 Plt Count 284 MPV 11.1 Neut % (Auto) 63.9 Lymph % (Auto) 24.5 Charles % (Auto) 8.2 Eos % (Auto) 2.8 Baso % (Auto) 0.4 Neut # (Auto) 5.9 Lymph # (Auto) 2.3 Charles # (Auto) 0.8 Eos # (Auto) 0.3 Baso # (Auto) 0.0 Immature Gran % 0.2 Nucleated RBC % 0.0 Immature Gran # 0.02 Nucleated RBCs # 0.00 INR PT Patient/Control Mix Circ Anticoag PTT Sodium Potassium Chloride Carbon Dioxide Anion Gap BUN Creatinine GFR Calculation BUN/Creatinine Ratio Glucose Hemoglobin A1c Calculated Osmolality Calcium Magnesium Total Bilirubin AST ALT Alkaline Phosphatase Troponin I < 0.015 B-Natriuretic Peptide 7 Total Protein Albumin Globulin Albumin/Globulin Ratio Triglycerides Cholesterol LDL Cholesterol VLDL Cholesterol HDL Cholesterol Heart Disease Risk Ratio Lipase Urine Color Urine Appearance Urine pH Ur Specific [place] Urine Protein Urine Glucose (UA) Urine Ketones Urine Blood Urine Nitrate Urine Bilirubin Urine Urobilinogen Urine Leukocytes Ur Squamous Epith Cells Urine Mucus Ur Culture Indicated? Urine Opiates Screen Ur Barbiturates Screen Ur Phencyclidine Scrn U Amphetamine/Methamph U Benzodiazepines Scrn U Cocaine Metab Screen U Cannabinoids Screen 01/30/17 01/30/17 00:00 00:00 WBC RBC Hgb Hct MCV MCH MCHC RDW Plt Count MPV Neut % (Auto) Lymph % (Auto) Charles % (Auto) Eos % (Auto) Baso % (Auto) Neut # (Auto) Lymph # (Auto) Charles # (Auto) Eos # (Auto) Baso # (Auto) Immature Gran % Nucleated RBC % Immature Gran # Nucleated RBCs # INR 1.0 PT Patient/Control Mix 10.4 Circ Anticoag PTT 29.1 Sodium Potassium Chloride Carbon Dioxide Anion Gap BUN Creatinine GFR Calculation BUN/Creatinine Ratio Glucose Hemoglobin A1c Calculated Osmolality Calcium Magnesium 1.9 Total Bilirubin AST ALT Alkaline Phosphatase Troponin I B-Natriuretic Peptide Total Protein Albumin Globulin Albumin/Globulin Ratio Triglycerides Cholesterol LDL Cholesterol VLDL Cholesterol HDL Cholesterol Heart Disease Risk Ratio Lipase 110.0 Urine Color Urine Appearance Urine pH Ur Specific [place] Urine Protein Urine Glucose (UA) Urine Ketones Urine Blood Urine Nitrate Urine Bilirubin Urine Urobilinogen Urine Leukocytes Ur Squamous Epith Cells Urine Mucus Ur Culture Indicated? Urine Opiates Screen Ur Barbiturates Screen Ur Phencyclidine Scrn U Amphetamine/Methamph U Benzodiazepines Scrn U Cocaine Metab Screen U Cannabinoids Screen DS: Provider Date of admission: 01/30/17 01:12 Primary care physician: Jeovanny Heredia MD Attending physician on admission: Jeovanny Heredia MD Consults: 01/30/17 02:32 Consult to Case Mgmt/Social Srvs [CONS] Routine Reason for Case Mgmt/Social Srvs: Discharge Planning Consult to Physician [CONS] Routine Comment: Chest pain Consulting Provider: Cardiology - [facility] When should Consulting Provider be notified: In am Discharging clinician: Jeovanny Heredia MD Expected date of discharge: 01/30/17
== END 2017-01-30 15:00 | disposition home or self-care (01) ==
LOC: N.ED 23:24 → INTOOBSV 01-30 01:12 → N.EDINP 01-30 01:12 → N.TELES 01-30 02:23
PROVIDERS: ADMIT Family Medicine; ATTEND Family Medicine

== ENCOUNTER 2019-03-14 19:23 | Inpatient (IN) ==
[2019-03-14] MEDS ORDERED: HYDROmorphone 2 MG/1 ML VIAL IV STA (21:47)
[2019-03-14] MEDS ORDERED: ONDANSETRON 4 MG/2 ML VIAL IV STA (21:47)
[2019-03-14] MEDS ORDERED: ALUM/MAG/SIMETH/LIDO VISC 1:1 30 ML BOTTLE PO STA (21:47)
[2019-03-14] MEDS ORDERED: SODIUM CHLORIDE 0.9% 1,000 ML IV STA (21:47)
[2019-03-14] MEDS ORDERED: PANTOPRAZOLE 40 MG VIAL IV STA (21:47)
[2019-03-14 23:04] LABS: Basophils % 0.3 % (0.0-0.8); Eosinophils # 0.2 10*3/uL (0.0-0.87); Eosinophils % 1.9 % (0.00-10.9); Hematocrit 41.2 VOL% (42.0-52.0); Hemoglobin 13.4 GM/DL (14.0-18.0); Immature Granulocytes % 0.6 %; Immature Granulocytes Absolute 0.08 #; Lymphocytes % 16.1 % (21.2-54.2); Mean Corpuscular HGB Conc 32.5 GM/DL (32-36); Mean Corpuscular Volume 87.3 FL (87-102); Mean Platelet Volume 11.5 FL (9.6-12.0); Monocytes % 8.8 % (1.7-12.7); Neutrophils % 72.3 % (38.7-73.9); Platelet Count 341 T/CUMM (130-400); Red Blood Count 4.72 MC/CUMM (3.8-5.5); Red Cell Distribution Width 12.2 % (9.3-17.3); White Blood Count 12.4 T/CUMM (4-12)
[2019-03-14 23:05] LABS: Apearance,Urine CLEAR (Clear); Bilirubin,Urine Negative (Negative); Blood, Urine Negative (Negative); Glucose,Urine (UA) Negative (Negative); Ketones,Urine Negative (Negative); Mucus,Urine Occasional /LPF (Occasional); Nitrite,Urine Negative (Negative); Protein,Urine Negative; RBC,Urine 1 /HPF (0-4); Urine Color Yellow (Yellow); Urine Specific Gravity 1.018 (1.001-1.035); Urine Urobilinogen < 2.0 EU/DL (0.2-1.0); WBC,Urine <1 /HPF (0-6)
[2019-03-14 23:28] LABS: Alanine Aminotransferase 22 U/L (16-61); Albumin 3.7 G/DL (3.4-5.0); Alkaline Phosphatase 109 U/L (45-117); Amylase 40 U/L (25-115); Aspartate Amino Transferase 28 U/L (0-37); Bilirubin,Total < 0.39 MG/DL (0.2-1.0); Blood Urea Nitrogen 12 MG/DL (7-18); Calcium 8.6 MG/DL (8.5-10.1); Glucose 100 MG/DL (74-106); Osmolality,Calculated 282.1 MOS/KG (273-304); Total Protein 7.1 G/DL (6.4-8.3)
[2019-03-15] MEDS ORDERED: HYDROmorphone 2 MG TABLET PO PRN (02:05)
[2019-03-15] MEDS ORDERED: ACETAMINOPHEN 325 MG TABLET PO PRN (02:05)
[2019-03-15] MEDS ORDERED: LACTULOSE 20 GM/30 ML UDCUP PO PRN (02:05)
[2019-03-15] MEDS: SODIUM CHLORIDE 0.9% 1,000 ML IV SCH ×3 (02:39→23:12)
[2019-03-15] MEDS: ONDANSETRON 4 MG/2 ML VIAL IV PRN ×2 (02:39→21:15)
[2019-03-15 06:24] LABS: Basophils % 0.3 % (0.0-0.8); Eosinophils # 0.2 10*3/uL (0.0-0.87); Eosinophils % 2.1 % (0.00-10.9); Hematocrit 37.6 VOL% (42.0-52.0); Hemoglobin 12.8 GM/DL (14.0-18.0); Immature Granulocytes % 0.4 %; Immature Granulocytes Absolute 0.04 #; Lymphocytes # 1.4 10*3/uL (1.4-4.0); Lymphocytes % 12.6 % (21.2-54.2); Mean Corpuscular Volume 85.6 FL (87-102); Mean Platelet Volume 10.9 FL (9.6-12.0); Monocytes % 7.3 % (1.7-12.7); Neutrophils % 77.3 % (38.7-73.9); Platelet Count 287 T/CUMM (130-400); Red Blood Count 4.39 MC/CUMM (3.8-5.5); Red Cell Distribution Width 12.3 % (9.3-17.3); White Blood Count 10.9 T/CUMM (4-12)
[2019-03-15 06:58] LABS: Albumin 3.2 G/DL (3.4-5.0); Bilirubin,Total 0.8 MG/DL (0.2-1.0); Calcium 8.4 MG/DL (8.5-10.1); Risk Ratio 3.72; VLDL CHOLESTEROL 18.8 MG/DL
[2019-03-15] MEDS: HYDROmorphone 2 MG/1 ML VIAL IV PRN ×3 (08:31→21:13)
[2019-03-15] MEDS ORDERED: LIDOCAINE 2% 5 ML VIAL ONE (09:00)
[2019-03-15] MEDS ORDERED: PROPOFOL 200 MG/20 ML VIAL IV ONE (09:00)
[2019-03-15] MEDS: DOCUSATE SODIUM 100 MG CAPSULE PO SCH ×2 (09:28→21:13)
[2019-03-15] MEDS ORDERED: LACTATED RINGERS 1,000 ML IV SCH (09:30)
[2019-03-15] MEDS: FAMOTIDINE 20 MG/2 ML VIAL IV SCH ×2 (11:49→21:10)
[2019-03-16] MEDS: SODIUM CHLORIDE 0.9% 1,000 ML IV SCH (06:37)
[2019-03-16] MEDS: DOCUSATE SODIUM 100 MG CAPSULE PO SCH (08:53)
[2019-03-16] MEDS: HYDROmorphone 2 MG/1 ML VIAL IV PRN (08:53)
[2019-03-16] MEDS: FAMOTIDINE 20 MG/2 ML VIAL IV SCH (08:54)
[2019-03-16 12:32] VITALS: BP 121/72
[2019-03-16] MEDS ORDERED: CITALOPRAM 20 MG TABLET PO SCH (21:00)
[2019-03-17] MEDS ORDERED: PANTOPRAZOLE 20 MG TABLET PO SCH (09:00)
== END 2019-03-16 15:53 | disposition home or self-care (01) | DRG 391 ==
LOC: N.ED 19:23 → N.EDINP 23:39 → N.5E 03-15 00:39
PROVIDERS: ADMIT Family Medicine; ATTEND Family Medicine

== ENCOUNTER 2021-11-23 14:02 | Inpatient (IN) ==
[2021-11-23] MEDS ORDERED: ONDANSETRON 4 MG/2 ML VIAL IV STA (14:19)
[2021-11-23] MEDS ORDERED: HYDROmorphone 1 MG/1 ML SYRINGE IV STA (14:19)
[2021-11-23 15:10] LABS: Basophils % 0.2 % (0.0-0.8); Eosinophils % 0.2 % (0.00-10.9); Hematocrit 43.3 VOL% (42.0-52.0); Hemoglobin 15.2 GM/DL (14.0-18.0); Immature Granulocytes % 0.4 %; Immature Granulocytes Absolute 0.08 #; Lymphocytes # 0.9 10*3/uL (1.4-4.0); Mean Corpuscular HGB Conc 35.1 GM/DL (32-36); Mean Platelet Volume 10.4 FL (9.6-12.0); Neutrophils % 86.2 % (38.7-73.9); Platelet Count 394 T/CUMM (130-400); Red Blood Count 5.22 MC/CUMM (3.8-5.5); Red Cell Distribution Width 12.3 % (9.3-17.3); White Blood Count 18.4 T/CUMM (4-12)
[2021-11-23 15:29] LABS: Albumin 3.8 G/DL (3.4-5.0); Bilirubin,Total 0.7 MG/DL (0.20-1.00); Calcium 9.5 MG/DL (8.5-10.1); Osmolality,Calculated 268.1 MOS/KG (273-304); Potassium 3.7 MMOL/L (3.5-5.1); Total Protein 8.5 G/DL (6.4-8.2)
[2021-11-23] MEDS ORDERED: ACETAMINOPHEN 325 MG TABLET PO PRN (15:50)
[2021-11-23] MEDS ORDERED: HYDROmorphone 1 MG/1 ML SYRINGE IV PRN (15:50)
[2021-11-23] MEDS: SODIUM CHLORIDE 0.9% 1,000 ML IV SCH (16:18)
[2021-11-23] MEDS: ONDANSETRON 4 MG/2 ML VIAL IV PRN (16:19)
[2021-11-23 16:34] LABS: Hyaline Casts,Urine 9 /LPF (0-3); Mucus,Urine Occasional /LPF (Occasional); RBC,Urine 65 /HPF (0-4); Squamous Epithelial Cell,Urine Occasional /HPF (0-10); Urine Appearance Clear (Clear); Urine Color Yellow (Yellow)
[2021-11-23 16:35] LABS: Bilirubin,Urine Negative (Negative); Blood, Urine Small mg/dL (Negative); Glucose,Urine (UA) Negative (Negative); Ketones,Urine 15 mg/dL (Negative); Nitrite,Urine Negative (Negative); Protein,Urine 100 mg/dL (Negative); Urine Specific Gravity 1.028 (1.001-1.035); Urine Urobilinogen 0.2 eU/dL (<2.0); Urine pH 5.5 (4.5-8.0)
[2021-11-23] MEDS ORDERED: MAGNESIUM HYDROXIDE SUSP 30 ML UDCUP PO PRN (17:45)
[2021-11-23] MEDS ORDERED: BISACODYL 5 MG TABLET PO PRN (17:45)
[2021-11-23] MEDS ORDERED: oxyCODONE/ACETAMINOPHEN 5-325 MG TABLET ONE (17:46)
[2021-11-23] MEDS: oxyCODONE/ACETAMINOPHEN 5-325 MG TABLET PO PRN ×2 (18:04→23:58)
[2021-11-23 19:32] LABS: Risk Ratio 5.15; VLDL Cholesterol 26.6 MG/DL
[2021-11-23] MEDS: DOCUSATE SODIUM 100 MG CAPSULE PO SCH (20:48)
[2021-11-23] MEDS: HYDROmorphone 1 MG/1 ML SYRINGE IV PRN (20:49)
[2021-11-24] MEDS: SODIUM CHLORIDE 0.9% 1,000 ML IV SCH ×4 (00:53→22:51)
[2021-11-24] MEDS: HYDROmorphone 1 MG/1 ML SYRINGE IV PRN ×6 (00:54→22:48)
[2021-11-24 05:45] LABS: Calcium 8.9 MG/DL (8.5-10.1); Osmolality,Calculated 260.7 MOS/KG (273-304); Potassium 4.3 MMOL/L (3.5-5.1)
[2021-11-24] MEDS: oxyCODONE/ACETAMINOPHEN 5-325 MG TABLET PO PRN ×2 (08:00→16:39)
[2021-11-24] MEDS: cefTRIAXone 1,000 MG in SODIUM CHLORIDE 0.9% 100 ML IV SCH (08:51)
[2021-11-24] MEDS: DOCUSATE SODIUM 100 MG CAPSULE PO SCH ×2 (08:51→21:02)
[2021-11-24] MEDS: PANTOPRAZOLE 40 MG VIAL IV SCH (08:51)
[2021-11-24] MEDS ORDERED: PANTOPRAZOLE 40 MG TABLET PO SCH (09:00)
[2021-11-24] MEDS: ONDANSETRON 4 MG/2 ML VIAL IV PRN (13:39)
[2021-11-25] MEDS: SODIUM CHLORIDE 0.9% 1,000 ML IV SCH ×2 (00:03→18:01)
[2021-11-25] MEDS: HYDROmorphone 1 MG/1 ML SYRINGE IV PRN ×4 (03:55→19:51)
[2021-11-25] MEDS: DOCUSATE SODIUM 100 MG CAPSULE PO SCH ×2 (08:11→23:07)
[2021-11-25] MEDS: PANTOPRAZOLE 40 MG VIAL IV SCH (08:11)
[2021-11-25] MEDS: cefTRIAXone 1,000 MG in SODIUM CHLORIDE 0.9% 100 ML IV SCH (08:12)
[2021-11-25] MEDS: LACTATED RINGERS 1,000 ML IV SCH (10:59)
[2021-11-25] MEDS: oxyCODONE/ACETAMINOPHEN 5-325 MG TABLET PO PRN (17:58)
[2021-11-25] MEDS: ONDANSETRON 4 MG/2 ML VIAL IV PRN (19:52)
[2021-11-26] MEDS: SODIUM CHLORIDE 0.9% 1,000 ML IV SCH ×5 (00:31→19:17)
[2021-11-26] MEDS: HYDROmorphone 1 MG/1 ML SYRINGE IV PRN ×4 (00:31→20:19)
[2021-11-26] MEDS: LACTATED RINGERS 1,000 ML IV SCH (08:00)
[2021-11-26] MEDS: cefTRIAXone 1,000 MG in SODIUM CHLORIDE 0.9% 100 ML IV SCH (09:53)
[2021-11-26] MEDS: PANTOPRAZOLE 40 MG VIAL IV SCH (09:55)
[2021-11-26] MEDS: oxyCODONE/ACETAMINOPHEN 5-325 MG TABLET PO PRN ×2 (09:56→19:17)
[2021-11-26] MEDS: DOCUSATE SODIUM 100 MG CAPSULE PO SCH ×2 (09:57→20:20)
[2021-11-27] MEDS: SODIUM CHLORIDE 0.9% 1,000 ML IV SCH ×2 (02:54→10:54)
[2021-11-27] MEDS: cefTRIAXone 1,000 MG in SODIUM CHLORIDE 0.9% 100 ML IV SCH (08:59)
[2021-11-27] MEDS: PANTOPRAZOLE 40 MG VIAL IV SCH (09:00)
[2021-11-27] MEDS: DOCUSATE SODIUM 100 MG CAPSULE PO SCH (09:01)
[2021-11-27 15:55] VITALS: BP 124/60
== END 2021-11-27 17:30 | disposition home or self-care (01) | DRG 440 ==
LOC: N.ED 14:02 → N.EDINP 14:02 → N.5E 18:01
PROVIDERS: ADMIT Family Medicine; ATTEND Family Medicine